=== PATIENT | female | born 1955 | race Caucasian/White ===

== ENCOUNTER 2016-11-07 10:47 | Inpatient (IN) | payer MEDICARE, OTHER ==
[~2016-11-07] VITALS: Ht 175.3 cm; Wt 174.6 kg
--- NOTE | ~2016-11-07 | XA166 ---
[facility] A Service of [facility] RADIOLOGY TEXT RESULTS PATIENT: MIMA KENNEDY LOCATION: C2A : 54 UNIT #: [id number] AGE: [address]: Morena Dudley MD SEX: F ORDER DR: [id number] [facility] [address] [facility] [place], [place] [address] [id number] I MR#: [id number] Acc #: [id number] NAME: MIMA KENNEDY : 1955 SEX: F STUDY DATE/TIME: 11/10/2016 16:04 UNIT: C2A ROOM: [facility] STUDY DESCRIPTION: XA PICC Line Placement WO Port Attending Physician: Morena Dudley M.D. Ordering Physician: Morena Dudley M.D. Primary Care Physician: Hilda Primary Care Physician MEDICAL IMAGING REPORT This report is preliminary unless electronic signature is present EXAM PICC line insertion. The PICC line was placed in the right basilic vein. INDICATIONS IV access. The procedure was performed by Kaykay George A.P.R.N. PRE-PROCEDURE The procedure was explained to the patient and/or patient packaging sales representative including risks, benefits, potential complications and potential for alternative forms of treatment. Informed consent was obtained, and prior to initiating the procedure a formal timeout procedure was performed. PROCEDURE Using full standard sterile barrier technique, including caps, gowns, gloves, masks, as well as sterile skin preparation and standard sterile draping, the right arm was prepped and draped in the usual fashion, and real-time sterile ultrasound guidance was used to localize an arm vein and to confirm vessel patency. A hard copy ultrasound image was recorded. After local anesthesia with 1% Xylocaine, the vein was punctured using real-time sterile ultrasound guidance, and an 0.018 guidewire was advanced into the superior vena cava, using fluoroscopic guidance. A 5-Sinhala 40 cm double -lumen PICC was then measured and deployed with the tip positioned in the superior vena cava. The position of the line was documented with a radiographic image. The line was secured in place with an adhesive dressing and an antibiotic patch was applied. Total fluoro time was 1.1 minutes. A single fluoroscopic spot image was obtained. Reference air kerma 18 mGy. IMPRESSION 1. Successful placement of a 5-Sinhala 40 cm double-lumen PowerPICC via [facility] A Service of [facility] RADIOLOGY TEXT RESULTS PATIENT: MIMA KENNEDY LOCATION: [facility] 215-01 : 54 UNIT #: [id number] AGE: [address]: Morena Dudley MD SEX: F ORDER DR: the right basilic vein under ultrasound and fluoroscopic guidance. The tip of the PICC is in good position in the superior vena cava. 2. A single fluoroscopic spot image was obtained. Dictated by... Simón Solano M.D. THIS IS AN ELECTRONICALLY VERIFIED REPORT Simón Solnao M.D. at 11/12/2016 2:46 PM KEITH/jeremias TD: 11/11/2016 09:51 JOB #: [id number] MEDICAL IMAGING REPORT Page 1 of 1 COPY
--- NOTE | ~2016-11-07 | DS ---
Unit #: [id number] #: [id number] Patient: MIMA KENNEDY [id number] [address] [address] [id number] I MR#: [id number] NAME: MIMA KENNEDY ROOM: 215 Age: 61 Sex: F Admission Date: 11/07/2016 : 1955 Discharge Date: 11/10/2016 Attending Physician: Morena Dudley M.D. Primary Care Physician: No Primary Care Physician DISCHARGE SUMMARY FINAL DIAGNOSES 1. Sepsis. 2. Urinary tract infection. 3. Urine culture positive for extended spectrum beta lactamases Escherichia coli. 4. Acute on chronic kidney disease stage 2. 5. Hypotension, improved. 6. Diabetes mellitus type 2. 7. Morbid obesity. DISCHARGE MEDICATIONS 1. Gabapentin 400 mg twice a day. 2. Topamax 100 mg twice a day. 3. Atenolol 50 mg daily. 4. Oxycodone continue home dose. 5. IV meropenem 500 mg q.6 for 10 days. Please note: Zestril has been discontinued at this time. CONSULTATIONS DURING HOSPITALIZATION 1. Dr. Lynn from Infectious Disease. 2. Dr. Thayer from renal services. HOSPITAL COURSE Ms. Helm is a 61-year-old morbidly obese female, who presented to ER with polyuria, dysuria, and incontinence. Patient was diagnosed with sepsis, UTI, urosepsis, hypotension, leukocytosis, acute on chronic kidney disease. Patient was admitted to med/surg unit. IV fluids were started. IV Rocephin was started. Patient's culture positive for ESBL Escherichia coli. Dr. Lynn was consulted. The patient is being started on IV meropenem. That will be continued for 10 days. The patient would like to go home, is being discharged home as stable. Please note, the patient's BAKARI inhibitor has been discontinued because of the renal insufficiency and also for hypotension. That needs to be observed as outpatient. DIAGNOSTIC STUDIES LABORATORY: Labs on discharge: Sodium 138, potassium 3.7, chloride 110, bicarbonate 20, BUN 35, creatinine 1.3. WBC 7.7, hemoglobin 9.6, hematocrit 28, platelet count 177,000. DISCHARGE INSTRUCTIONS 1. The patient is being discharged home after PICC line placement. 2. IV Merrem antibiotic for 10 days. 3. Followup primary care provider in one week. Unit #: [id number] #: [id number] Patient: MIMA KENNEDY 4. BMP to be repeated in one week. 5. Followup with Dr. Thayer as outpatient. Dictated by... Nicholas Madison TD: 11/11/2016 17:21 JOB #: [id number] DISCHARGE SUMMARY Page 1 of 1 X Morena Dudley MD X DISCHARGE SUMMARY
--- NOTE | ~2016-11-07 | HP ---
Unit #: [id number] #: [id number] Patient: MIMA KENNEDY [id number] [address] [place], [place] [address] [id number] I MR#: [id number] NAME: MIMA KENNEDY ROOM: 215 Age: 61 Sex: F Admission Date: 11/07/2016 : 1955 Attending Physician: Morena Dudley M.D. Primary Care Physician: No Primary Care Physician HISTORY AND PHYSICAL CHIEF COMPLAINT Frequent urination and incontinence. HISTORY OF PRESENT ILLNESS 61-year-old morbidly obese female with multiple medical problems, came to ER of one day duration of polyuria, dysuria, incontinence. She was feeling kind of dizzy, although she did not pass out. She also complained of some abdominal pain. No other major issues. She did have fever at home, according to her temperature at home was 103. She was having chills. Came to the ER and was found to be septic, is being admitted to [facility] in med/surg. PAST MEDICAL HISTORY 1. Hypertension. 2. Chronic kidney disease. 3. Diet controlled diabetes mellitus. 4. Hyperlipidemia. 5. Morbid obesity. 6. Obstructive sleep apnea. HOME MEDICATIONS Gabapentin 400 mg 3 times a day; atenolol 50 mg daily; Topamax 100 mg twice a day; Nucynta ER 200 mg twice a day; Zestril 40 mg daily; and oxycodone 10/325 1 tablet 3 times a day. SOCIAL HISTORY Patient has not history of smoking, alcohol, or drug abuse. PAST SURGICAL HISTORY History of hysterectomy, history of bladder sling, history of fatty tissue tumor removal on the head, history of carpal tunnel surgery, history of cholecystectomy, history of tonsillectomy. FAMILY HISTORY Positive for coronary artery disease in brother. It started at the age of 36 and she also has coronary artery disease in her parents. ALLERGIES No known drug allergies. PHYSICAL EXAMINATION GENERAL: The patient is sitting in the bed in no respiratory distress. VITAL SIGNS: Blood pressure is 91/64, respiratory rate 18, pulse 74, temperature 100.3, oxygen saturation is 97%. Unit #: [id number] #: [id number] Patient: MIMA KENNEDY HEENT: Head is normocephalic. Eye movements are normal. Neck is supple. CHEST: Fair air entry. No additional sounds. CARDIOVASCULAR: S1 and S2 positive. Regular rhythm. ABDOMEN: Obese, not able to appreciate any organomegaly. No tenderness. EXTREMITIES: There is trace edema. INSIDE SALES SUPERVISOR: Patient is awake, alert and oriented x3. No focal neurological deficits. DIAGNOSTIC STUDIES LABORATORY STUDIES: WBC 23.8, hemoglobin 12.1, hematocrit 36.2 and platelet count of 293. Sodium 135, potassium 4.4, chloride 110, bicarb 16, BUN 56, creatinine 2.1. Liver enzymes are stable. Urinalysis shows 4+ bacteria, 3+ leukocytes, lactic acid 1.4. CARDIOLOGY STUDIES: EKG - normal sinus rhythm. ASSESSMENT AND PLAN Patient is being admitted to med/surg unit for: 1. Sepsis. 2. UTI. 3. Hypertension. 4. Leukocytosis. 5. Acute on chronic renal disease. 6. Diabetes mellitus diet controlled. 7. Hyperlipidemia. 8. Morbid obesity. 9. Obstructive sleep apnea. 10. Chronic back pain. PLAN Admit to med/surg. IV antibiotic is being started. Blood culture has been done. Urine culture has been done. (1) will be consulted for renal failure. Lovenox 40 mg subcu q. day for DVT prophylaxis. Home medications have been reviewed and adjusted. Plan of care has been discussed with patient at length. She does verbalize understanding. Dictated by Nicholas Madison TD: 11/07/2016 18:49 JOB #: [id number] HISTORY AND PHYSICAL Page 1 of 1 X Morena Dudley MD X HISTORY AND PHYSICAL
--- NOTE | ~2016-11-07 | CO ---
Unit #: [id number] #: [id number] Patient: MIMA LYNN [id number] [address] [address] [id number] I MR#: [id number] NAME: MIMA LYNN ROOM: 215 Age: 61 Sex: F Admission Date: 11/07/2016 : 1955 Attending Physician: Morena Dudley M.D. Primary Care Physician: No Primary Care Physician CONSULTATION REPORT REQUESTING PHYSICIAN Dr. Dudley. REASON FOR CONSULTATION ESBL Escherichia coli UTI. HISTORY OF PRESENT ILLNESS Ms. Lynn is a 61-year-old morbidly obese female with past medical problems consistent of hypertension, chronic kidney disease, diabetes mellitus, hyperlipidemia, and obstructive sleep apnea who came into the ER after one day complains of subjective fevers as well as chills and frequent urination. She was at her son's house and when she got home she felt like she was going to pass out. She denies dysuria, did not take her temperature at home, although she did state that she felt like she was having a large amount of chills as well as fevers. She had a urine sample and culture that was collected which grew Escherichia coli ESBL. The patient was found to have leukocytosis on admission. She has been started on vancomycin and Rocephin. At this point, the urine culture had grown Escherichia coli ESBL. Despite patient not being on appropriate antibiotics, she continues to improve and is feeling better. White count is continuing to improve and patient without any fevers. Blood cultures are currently negative. We are now being consulted for further antibiotic management. PAST MEDICAL HISTORY 1. Hypertension. 2. Chronic kidney disease. 3. Diabetes mellitus. 4. Hyperlipidemia. 5. Morbidly obese. 6. Obstructive sleep apnea. MEDICATIONS Current medications reviewed. Patient is currently on vancomycin as well as Rocephin. SOCIAL HISTORY The patient denies any history of smoking, alcohol, or illicit drug use. PAST SURGICAL HISTORY 1. Hysterectomy. 2. History of bladder sling. 3. History of fatty tissue tumor removal in the head. 4. History of carpal tunnel surgery. Unit #: [id number] #: [id number] Patient: MIMA LYNN 5. Cholecystectomy. 6. History of tonsillectomy. FAMILY HISTORY Noncontributory. ALLERGIES No current allergies. PHYSICAL EXAMINATION GENERAL: Alert and oriented patient in no apparent distress. VITAL SIGNS: Current vital signs: Temperature is 98.1 on admission. On the 16th, temperature was 100.3. Heart rate was 68, respirations 18, blood pressure 116/52. HEENT: Normocephalic. Pupils are equal, round, and reactive to light and accommodation. CHEST: Clear to auscultation. Nonlabored. CARDIOVASCULAR: Regular rate and rhythm. ABDOMEN: Soft, nontender. Positive bowel sounds. SKIN: Dry and intact with no edema. NEUROLOGIC: The patient is alert, awake, and oriented x3. No focal deficits. DIAGNOSTIC STUDIES LABORATORY: Glucose is 102, BUN 41, creatinine 1.7, GFR 137, potassium 3.9, chloride 102, CO2 is 19. Upon admission, creatinine was 2.1. Vancomycin random is 19. Lactic acid was 1.4 on admission, now 1. CBC: White count 10.1. On admission, white count was 23.8. Hemoglobin 10, platelets 195,000, hematocrit 30.4. IMAGING: Ultrasound of the kidneys showing no hydronephrosis, generalized left renal parenchymal atrophy and compensatory hypertrophy of the right kidney. Chest x-ray with borderline cardiac size without new effusion or dense consolidation. ASSESSMENT AND PLAN A 61-year-old female with subjective fevers, chills, as well as, frequent urination and urine culture positive for extended spectrum beta lactamases Escherichia coli urinary tract infection. On discussion with patient, urine was collected from a (1) which was then poured into a specimen cup. Suspect positive urine culture was either a contamination or a colonization. Elevated white count was most likely related to dehydration which seems to have improved despite patient not being on appropriate antibiotics for extended spectrum beta lactamases Escherichia coli urinary tract infection. Not sure if patient has active urinary tract infection but at this point, will straight cath patient for urine and then culture. Will discontinue vancomycin since no methicillin-resistant Staphylococcus aureus is isolated. Will cover for extended spectrum beta lactamases Escherichia coli urinary tract infection with meropenem for now and then followup on repeat urine cultures. At this point, the patient is continuing to improve as well as with urination. Patient will be seen by Dr. Lynn later today who will provide any further recommendations. Unit #: [id number] #: [id number] Patient: MIMA LYNN Dictated by... Asuncion Sullivan APRN for Nicholas Heck TD: 11/09/2016 14:39 JOB #: [id number] CONSULTATION REPORT Page 1 of 1 X X CONSULTATION REPORT
--- NOTE | ~2016-11-07 | CR72 ---
[facility] A Service of [facility] RADIOLOGY TEXT RESULTS PATIENT: MIMA KENNEDY LOCATION: [facility] : 53 UNIT #: [id number] AGE: [address]: Morena Dudley MD SEX: F ORDER DR: [id number] [facility] [address] [facility]. [place], [place] [address] [id number] I MR#: [id number] Acc #: [id number] NAME: MIMA KENNEDY : 1955 SEX: F STUDY DATE/TIME: 11/07/2016 12:12 UNIT: [facility] ROOM: [facility] STUDY DESCRIPTION: CR Chest Single View Portable Attending Physician: Morena Dudley M.D. Ordering Physician: Virgil Mckeon M.D. Primary Care Physician: Primary Care Physician No MEDICAL IMAGING REPORT This report is preliminary unless electronic signature is present EXAM Frontal chest, 11/07/2016 INDICATION 61-year-old female with a fever since yesterday, urinary frequency. Urinary tract infection. Mild cough and chest congestion, all symptoms since yesterday. TECHNIQUE Frontal chest COMPARISON 01/17/2015 FINDINGS There is dextroscoliosis. Cardiac silhouette is borderline in size and stable. Vascularity unremarkable. There is no effusion or dense consolidation. Minimal blunting of the left CP angle favored to be secondary to chronic pleural reaction. Old healed granulomatous disease. IMPRESSION 1. Borderline cardiac size without new effusion or dense consolidation. 2. Suggestion of some minimal blunting of the left CP angle also seen previously, likely the sequelae of chronic pleural reaction. Dictated by... Fritz Levin M.D. THIS IS AN ELECTRONICALLY VERIFIED REPORT Fritz Levin M.D. at 11/08/2016 2:55 PM Valente TD: 11/08/2016 09:24 [facility] A Service [facility] RADIOLOGY TEXT RESULTS PATIENT: MIMA KENNEDY LOCATION: [facility] : 53 UNIT #: [id number] AGE: [address]: Morena Dudley MD SEX: F ORDER DR: JOB #: [id number] MEDICAL IMAGING REPORT Page 1 of 1 COPY
--- NOTE | ~2016-11-07 | US77 ---
[facility] A Service of [facility] RADIOLOGY TEXT RESULTS PATIENT: MIMA KENNEDY LOCATION: A : 54 UNIT #: [id number] AGE: [address]: Morena Dudley MD SEX: F ORDER DR: [id number] [facility] [address] [facility]. [place], [place] [address] [id number] I MR#: [id number] Acc #: [id number] NAME: MIMA KENNEDY : 1955 SEX: F STUDY DATE/TIME: 11/08/2016 13:54 UNIT: A ROOM: [facility] STUDY DESCRIPTION: US Kidney Bilateral Complete Attending Physician: Morena Dudley M.D. Ordering Physician: Morena Dudley M.D. Primary Care Physician: No Primary Care Physician MEDICAL IMAGING REPORT This report is preliminary unless electronic signature is present EXAM Bilateral renal ultrasound. HISTORY Acute renal insufficiency. Dysuria for 2 days. Elevated creatinine 2.3. Incontinence. FINDINGS Ultrasound examination of both kidneys is technically limited by large patient size. No hydronephrosis or renal mass is identified. No focal renal parenchymal atrophy on the right. Generalized right renal parenchymal hypertrophy and generalized left renal parenchymal atrophy. Right kidney measures 16.3 cm in length and the left kidney measures 9.8 cm in length. Survey of the urinary bladder is unremarkable. IMPRESSION 1. No hydronephrosis. 2. Generalized left renal parenchymal atrophy and compensatory hypertrophy of the right kidney. Dictated by... Bg Aguilar M.D. THIS IS AN ELECTRONICALLY VERIFIED REPORT Bg Aguilar M.D. at 11/09/2016 3:26 PM DFNikole/maren TD: 11/09/2016 09:18 JOB #: [id number] MEDICAL IMAGING REPORT Page 1 of 1 COPY
--- NOTE | ~2016-11-07 | EKG ---
PATIENT: MIMA KENNEDY UNIT #: [id number] Ventricular Rate: 90 BPM Atrial Rate: 90 BPM P-R Interval: 156 ms QRS Duration: 92 ms Q-T Interval: 360 ms QTC Calculation(Bezet): 440 ms P [place]: 53 degrees Calculated R [place]: 23 degrees Calculated T [place]: 73 degrees Diagnosis Line: Normal sinus rhythm Diagnosis Line: Normal ECG Diagnosis Line: Diagnosis Line: Confirmed by PEDRO HAGEN MD ([id number]) on Diagnosis Line: 11/07/2016 4:01:01 PM INTERPRETING MD: HANS
--- NOTE | ~2016-11-07 | BMI ---
[facility] Nutrition Therapy DATE: 11/09/16 Patient: MIMA KENNEDY Physician: VU Address: [address] [place] [address] Room/Bed: [address] [place] [address], Zip: [place] [address] Admit Date: 11/07/16 Date of : 53 Height: 5 9 Weight: 385 174.63 HIGH BMI NOTE: DX: 61 y/o female admitted with UTI ANTHROPOMETRICS: Ht: 69", Wt: 175 kg, BMI: 56 DIET: Regular INTERVENTION: Restricted diet, meds/fluids per MD RECOMMENDATIONS: Please change diet to consistent carb/healthy heart due to PMH, to promote a gradual weight loss towards a healthy BMI range. Respectfully, Talita Ivey RD, LD Food and [facility] Services [facility] cc: client file
[~2016-11-07 10:47] MED LIST: ACCUPRIL PO; ACETAMINOOPHEN-1 TAB PO; ACETAMINOPHEN PO; ASPIRIN81 MG PO; ATENOLOL PO; ATENOLOL50 MG PO; BLOOD PRESSURE MED; BP PILL; CALCIUM + VITAM1 TAB PO; CELEBREX50 MG PO; CIPRO PO; DARVOCET-N 1001 TA1 PO; FLEXERIL10 MG PO; GABAPENTIN400 M2 PO; GLIPIZIDE10 MG PO; KETOPROFEN PO; LEVAQUIN PO; LIPITOR20 MG PO; LISINOPRIL10 MG PO; LISINOPRIL20 MG PO; LORTAB 10-5001 EACH PO; LORTAB 7.5-5001 TAB PO; MULTI-VITAMIN1 EAC1 PO; NEURONTIN300 MG PO; NUCYNTA ER200 MG PO; OMEGA 3 FISH OI1 CAP PO; PAXIL PO; PERCOCET 7.5-31 EACH PO; PHENERGAN PO; PRAVACHOL20 MG PO; PRINIVIL40 MG PO; TENORMIN25 M1 PO; TENORMIN50 MG PO; TOPAMAX PO; TYLENOL #3 PO; VICODIN 5/1 TAB 5/50 PO; VICODIN 5/500 T1 TAB PO; VITAPAK; WALMART PHARMACY; ZESTRIL40 MG PO
[2016-11-07 12:20] LABS: URINE SOURCE CLEAN CATCH
[2016-11-07 12:33] LABS: INR 1.1; PARTIAL THROMBOPLASTIN TIME 30.1 SECONDS (23.5-31.3); PROTHROMBIN TIME (PATIENT) 11.7 SECONDS (10.0-11.7)
[2016-11-07 12:36] LABS: ALBUMIN SERUM 3.9 g/dL (3.5-5.0); BILIRUBIN, DIRECT 0.1 mg/dL (0.0-0.2); BILIRUBIN,INDIRECT 0.5 mg/dL (0.0-0.9); BILIRUBIN,TOTAL 0.6 mg/dL (0.2-2.0); BUN/CREATININE RATIO 26.66; CALCIUM SERUM 8.7 mg/dL (8.4-10.2); CREATININE SERUM 2.1 mg/dL (0.6-1.4); GLOM FILT RATE Estimated 24.6 mL/min (>60); POTASSIUM 4.4 mmol/L (3.5-5.1); PROTEIN TOTAL SERUM 8.8 g/dL (6.0-8.3)
[2016-11-07 12:42] LABS: POC - CKMB 1.7 ng/mL (0.0-7.9); POC - TROPONIN <0.05 ng/mL (<=0.05)
[2016-11-07 12:44] LABS: BASOPHIL% 0.2 % (0-2.5); HEMATOCRIT 36.2 % (35.0-45.0); HEMOGLOBIN 12.1 gm/dL (12.0-16.0); LYMPHOCYTE# 1.7 X10e3 (1.0-3.5); LYMPHOCYTE% 7.2 % (17.0-45.0); MEAN CELL VOLUME 86.5 FL (83-96); MEAN CORPUSCULAR HEMOGLOBIN 28.8 PG (28-34); MEAN CORPUSCULAR HGB CONC 33.3 g/dL (30-36); MEAN PLATELET VOLUME 8.3 FL (6.5-11.5); MONOCYTE# 2.7 X10e3 (0-1.0); MONOCYTE% 11.5 % (3.0-12.0); NEUTROPHIL# 19.3 X10e3 (1.5-7.1); NEUTROPHIL% 81.1 % (40-75); PLATELET COUNT 293 X10e3 (140-420); RED BLOOD COUNT 4.19 X10e (3.90-5.30); RED CELL DISTRIBUTION WIDTH 14.2 % (11.0-15.5); WHITE BLOOD COUNT 23.8 X10e3 (4.0-10.5)
[2016-11-07 12:45] LABS: DIFF IND YES
[2016-11-07 12:53] LABS: CULTURE INDICATED? YES; URBCS1 AUWI 50-100 /[HPF] (0-2); URINE BACTERIA AUWI 4+ (NEGATIVE); URINE SQUAMOUS EPITHELIAL CELL MOD /[HPF]; UWBCS1 AUWI INNUM (0-5)
[2016-11-07 12:57] LABS: URINE APPEARANCE TURBID; URINE COLOR YELLOW; URINE SPECIFIC GRAVITY 1.016 (1.003-1.035)
[2016-11-07 12:58] LABS: URINE BILIRUBIN NEG (NEG); URINE BLOOD 3+ (NEG); URINE GLUCOSE NORM (NEG); URINE KETONE NEG (NEG); URINE LEUKOCYTE ESTERASE 3+ (NEG); URINE NITRATE NEG (NEG); URINE PROTEIN 100 (NEG); URINE UROBILINOGEN 0.2 MG/DL (NEG)
[2016-11-07 13:15] LABS: PLATELET ESTIMATE NORMAL (NORMAL); RBC NORMAL YES
[2016-11-07] MEDS ORDERED: GABAPENTIN400 M2 PO (16:57)
[2016-11-07] MEDS ORDERED: ATENOLOL50 MG PO (16:58)
[2016-11-07] MEDS ORDERED: TOPIRAMATE100 MG PO (16:58)
[2016-11-07] MEDS ORDERED: ZESTRIL40 MG PO (16:59)
[2016-11-07] MEDS ORDERED: NUCYNTA ER200 MG PO (16:59)
[2016-11-07] MEDS ORDERED: OXYCODONE-ACET1 EAC1 PO (17:01)
[2016-11-08 06:55] LABS: HEMATOCRIT 33.9 % (35.0-45.0); HEMOGLOBIN 11.2 gm/dL (12.0-16.0); MEAN CELL VOLUME 86.7 FL (83-96); MEAN CORPUSCULAR HEMOGLOBIN 28.6 PG (28-34); MEAN PLATELET VOLUME 8.3 FL (6.5-11.5); RED BLOOD COUNT 3.91 X10e (3.90-5.30); RED CELL DISTRIBUTION WIDTH 14.6 % (11.0-15.5); WHITE BLOOD COUNT 17.1 X10e3 (4.0-10.5)
[2016-11-08 07:19] LABS: BUN/CREATININE RATIO 24.34; CREATININE SERUM 2.3 mg/dL (0.6-1.4); POTASSIUM 4.4 mmol/L (3.5-5.1)
[2016-11-08 18:09] LABS: CREATININE,RANDOM URINE 91 mg/dL; POTASSIUM,URINE RANDOM 22 mmol/L; SODIUM URINE RANDOM 37 mmol/L
[2016-11-09 07:33] LABS: HEMATOCRIT 30.4 % (35.0-45.0); MEAN CELL VOLUME 86.2 FL (83-96); MEAN CORPUSCULAR HEMOGLOBIN 28.3 PG (28-34); MEAN CORPUSCULAR HGB CONC 32.8 g/dL (30-36); MEAN PLATELET VOLUME 8.2 FL (6.5-11.5); RED BLOOD COUNT 3.53 X10e (3.90-5.30); RED CELL DISTRIBUTION WIDTH 14.4 % (11.0-15.5); WHITE BLOOD COUNT 10.1 X10e3 (4.0-10.5)
[2016-11-09 08:20] LABS: BUN/CREATININE RATIO 24.11; CREATININE SERUM 1.7 mg/dL (0.6-1.4); GLOM FILT RATE Estimated 31.8 mL/min (>60); POTASSIUM 3.9 mmol/L (3.5-5.1)
[2016-11-09 15:41] LABS: URINE SOURCE CATH
[2016-11-09 15:50] LABS: URINE APPEARANCE CLEAR; URINE BILIRUBIN NEG (NEG); URINE BLOOD 3+ (NEG); URINE COLOR YELLOW; URINE GLUCOSE NEG (NEG); URINE KETONE NEG (NEG); URINE LEUKOCYTE ESTERASE 1+ (NEG); URINE NITRATE NEG (NEG); URINE PH 5.5 (5-8); URINE PROTEIN 1+ (NEG); URINE SPECIFIC GRAVITY 1.018 (1.003-1.035); URINE UROBILINOGEN 0.2 MG/DL (NEG)
[2016-11-09 15:54] LABS: URINE BACTERIA AUWI NEG (NEGATIVE); URINE SQUAMOUS EPITHELIAL CELL OCC /[HPF]
[2016-11-10 05:22] LABS: HEMATOCRIT 28.6 % (35.0-45.0); HEMOGLOBIN 9.6 gm/dL (12.0-16.0); MEAN CELL VOLUME 85.6 FL (83-96); MEAN CORPUSCULAR HEMOGLOBIN 28.8 PG (28-34); MEAN CORPUSCULAR HGB CONC 33.6 g/dL (30-36); MEAN PLATELET VOLUME 8.1 FL (6.5-11.5); RED BLOOD COUNT 3.34 X10e (3.90-5.30); RED CELL DISTRIBUTION WIDTH 14.2 % (11.0-15.5); WHITE BLOOD COUNT 7.7 X10e3 (4.0-10.5)
[2016-11-10 06:15] LABS: BUN/CREATININE RATIO 26.92; CALCIUM SERUM 7.9 mg/dL (8.4-10.2); CREATININE SERUM 1.3 mg/dL (0.6-1.4); GLOM FILT RATE Estimated 43.9 mL/min (>60); MAGNESIUM 1.9 mg/dL (1.6-3.0); PHOSPHOROUS 3.7 mg/dL (2.5-4.6); POTASSIUM 3.7 mmol/L (3.5-5.1)
[2016-11-10] MEDS ORDERED: ACETAMINOPHEN650 M1 PO (12:49)
[2016-11-10] MEDS ORDERED: MEROPENEM500 M1 IV (12:50)
== END 2016-11-10 18:46 | disposition home health service (06) | DRG 872 ==
LOC: CED 10:47 → CFTX 10:47 → CED 11:30 → CEDOF 15:10 → CED 16:00 → C2A 17:16 → CEDOF 17:16 → C2A 11-10 18:46
PROVIDERS: Emergency Medicine; Internal Medicine Nephrology; Nurse Practitioner Family; Physician Assistant; Physician Assistant Medical
PROC: 02HV33Z Insertion of Infusion Device into Superior Vena Cava, Percutaneous Approach (ICD-10-PCS; principal; 2016-11-10)
PROC: B548ZZA Ultrasonography of Superior Vena Cava, Guidance (ICD-10-PCS; 2016-11-10)
DX: A41.9 Sepsis, unspecified organism (principal); E87.2 Acidosis; E11.22 Type 2 diabetes mellitus with diabetic chronic kidney disease; N17.9 Acute kidney failure, unspecified; N18.3 Chronic kidney disease, stage 3 (moderate); Z68.43 Body mass index [BMI] 50.0-59.9, adult; N39.0 Urinary tract infection, site not specified; E66.01 Morbid (severe) obesity due to excess calories; B96.20 Unspecified Escherichia coli [E. coli] as the cause of diseases classified elsewhere; Z16.12 Extended spectrum beta lactamase (ESBL) resistance; I12.9 Hypertensive chronic kidney disease with stage 1 through stage 4 chronic kidney disease, or unspecified chronic kidney disease; E78.5 Hyperlipidemia, unspecified; G47.33 Obstructive sleep apnea (adult) (pediatric); G89.29 Other chronic pain; M54.9 Dorsalgia, unspecified; D64.9 Anemia, unspecified; Z90.49 Acquired absence of other specified parts of digestive tract; Z90.710 Acquired absence of both cervix and uterus
CPT/HCPCS: 36415; 71010; 76770; 76937; 77001; 80048; 80076; 80202; 81003; 82436; 82553; 82570; 83605; 83735; 84100; 84133; 84300; 84484; 85025; 85027; 85610; 85730; 87040; 87086; 87088; 87186; 93005; 99291; C1751; C1769; J0696; J1642; J1650; J2185; J3370